=== PATIENT | male | born 2000 | race Caucasian/White ===

== ENCOUNTER 2022-05-03 08:47 | Emergency (ER) | payer MEDICAID ==
[~2022-05-03] VITALS: Ht 167.6 cm; Wt 80.0 kg
[2022-05-03 08:56] VITALS: BP 122/83
== END 2022-05-03 10:32 | disposition home or self-care (01) ==
LOC: ER 08:47
DX: J06.9 Acute upper respiratory infection, unspecified (principal); R50.9 Fever, unspecified
CPT/HCPCS: 99281